=== PATIENT | male | born 1945 | race Caucasian/White ===

== ENCOUNTER → 2024-06-08 | Outpatient (CLI) | payer BC, MEDICARE, SELFPAY ==
--- NOTE | 2024-06-08 13:45 | XR_ITS ---
Examination: Shoulder,left, 3 views Technique: Shoulder AP internal rotation, AP external rotation, Y view shoulder, 3 views Exam date and time :June 08, 2024 1407 hours Comparison 02/23/2023 INDICATIONS: History shoulder infection one to 2 years ago. FINDINGS: Prosthetic humeral head Prominent osteopenia No shoulder dislocation Old fracture clavicle No jany cortical bone destruction IMPRESSION: Left shoulder arthroplasty with satisfactory alignment
== END | disposition home or self-care (01) ==
LOC: CDIM 13:41
PROVIDERS: Referring Provider Surgery; Visit Provider Surgery
DX: Z96.612 Presence of left artificial shoulder joint (principal); L98.492 Non-pressure chronic ulcer of skin of other sites with fat layer exposed
CPT/HCPCS: 73030

== ENCOUNTER → 2024-06-08 | Outpatient (CLI) | payer BC, MEDICARE, SELFPAY | END | disposition home or self-care (01) | LOC: SWHD 09:26 | PROVIDERS: PCP Family Medicine; Referring Provider Family Medicine; Visit Provider Surgery | DX: T81.49XA Infection following a procedure, other surgical site, initial encounter (principal); I10 Essential (primary) hypertension; I49.9 Cardiac arrhythmia, unspecified; G47.30 Sleep apnea, unspecified | CPT/HCPCS: 99213; G0463 ==

== ENCOUNTER → 2024-06-15 | Outpatient (CLI) | payer OTHER, MEDICARE, SELFPAY | END | disposition home or self-care (01) | PROVIDERS: PCP Family Medicine; Referring Provider Family Medicine; Visit Provider Student in an Organized Health Care Education/Training Program | DX: T81.49XA Infection following a procedure, other surgical site, initial encounter (principal); I10 Essential (primary) hypertension; I49.9 Cardiac arrhythmia, unspecified; G47.30 Sleep apnea, unspecified | CPT/HCPCS: 99213; A9270; G0463 ==

== ENCOUNTER → 2024-10-25 | Outpatient (CLI) | payer OTHER, MEDICARE, SELFPAY ==
--- NOTE | 2024-10-25 16:34 | XR_ITS ---
Examination: Shoulder,right, 3 views Technique: Shoulder AP internal rotation, AP external rotation, Y view shoulder, 3 views Exam date and time :October 25, 2024 1717 hours INDICATIONS: Shoulder pain, osteoarthritis months. FINDINGS: Moderate osteoarthritis glenohumeral joint No fracture or shoulder dislocation No calcific tendinitis IMPRESSION: Moderate osteoarthritis glenohumeral joint
== END | disposition home or self-care (01) ==
PROVIDERS: PCP Nurse Practitioner Family; Referring Provider Orthopaedic Surgery; Visit Provider Orthopaedic Surgery
DX: M19.011 Primary osteoarthritis, right shoulder (principal)
CPT/HCPCS: 73030

== ENCOUNTER → 2025-01-08 | Outpatient (CLI) | payer MEDICARE, OTHER, SELFPAY ==
--- NOTE | 2025-01-08 14:30 | XR_ITS ---
Examination: Retroperitoneal ultrasound, complete Technique: Multiple high resolution grayscale images of the retroperitoneum obtained, including kidneys and bladder. Exam date and time:January 08, 2025 1400 hours INDICATIONS: Abnormal renal function tests on laboratory examination December 15, 2024 FINDINGS: Right kidney 8.1 cm cortex 1.6 cm Left kidney 13.5 cm cortex 1.5 cm Moderate renal parenchymal scar formation No bladder mass or bladder calculi Bladder prevoid volume 401 cc postvoid volume 61 cc Prostate 5.9 x 4.4 x 5.3 cm no prostate nodules IMPRESSION: Small right kidney Bilateral renal cortical thinning Moderate bilateral renal parenchymal scar formation Prostatomegaly no prostate nodules
== END | disposition home or self-care (01) ==
LOC: CDIM 13:44
PROVIDERS: PCP Nurse Practitioner Family; Referring Provider Nurse Practitioner Family; Visit Provider Nurse Practitioner Family
DX: N28.89 Other specified disorders of kidney and ureter (principal); N40.0 Benign prostatic hyperplasia without lower urinary tract symptoms
CPT/HCPCS: 76770

== ENCOUNTER → 2025-01-24 | Outpatient (CLI) | payer MEDICARE, OTHER, SELFPAY ==
--- NOTE | 2025-01-24 13:30 | XR_ITS ---
Examination: Nuclear medicine kidney imaging flow and function multiple studies Date and time: January 24, 2025 1224 hours INDICATIONS: Ultrasound examination atrophic right kidney January 08, 2025 TECHNIQUE AND FINDINGS: Intravenous ministration 10.8 mCi technetium 99m MAG3 Normal flow and function left kidney Flow to the right kidney reduced by 30% with mild to moderate impairment right renal function IMPRESSION: Mild to moderate impairment right renal function activity at right kidney 20 minutes 65.7%
== END | disposition home or self-care (01) ==
LOC: SNUC 12:22
PROVIDERS: PCP Nurse Practitioner Family; Referring Provider Internal Medicine; Visit Provider Internal Medicine
DX: N28.9 Disorder of kidney and ureter, unspecified (principal)
CPT/HCPCS: 78709; A9562

== ENCOUNTER → 2025-03-20 | Outpatient (CLI) | payer MEDICARE, OTHER, SELFPAY ==
--- NOTE | 2025-03-20 08:32 | XR_ITS ---
EXAMINATION: Renal sonography Renal Doppler sonographic assessment Date and time: March 20, 2025, 0857 hours, comparison January 08, 2025 INDICATIONS: Moderate impairment renal function, clinical diagnosis renal artery stenosis TECHNIQUE AND FINDINGS: Sonographic images kidneys with assessment peak systolic velocities, arterial, calculation of resistive indices calculation renal aorta ratios Right kidney 11.6 cm left kidney 13.8 cm No elevation of bilateral peak arterial systolic velocities Minimal elevation of resistive indices Bilateral normal renal aorta ratios IMPRESSION: No sonographic findings of renal artery stenosis
== END | disposition home or self-care (01) ==
LOC: CDIM 08:16
PROVIDERS: PCP Family Medicine; Referring Provider Internal Medicine Cardiovascular Disease; Visit Provider Internal Medicine
DX: N17.9 Acute kidney failure, unspecified (principal)
CPT/HCPCS: 93975